=== PATIENT | male | born 1945 | race Caucasian/White ===

== ENCOUNTER 2017-12-13 13:15 | Inpatient (IN) | payer MEDICARE ==
[~2017-12-13] VITALS: Ht 175.3 cm; Wt 63.4 kg
[2017-12-13] MEDS ORDERED: SODIUM CHLORIDE FLUSH 10ML SYR IVF ONE (14:00)
[2017-12-13 14:21] LABS: BASOPHILS # (AUTO) 0.01 x10^3/uL (0-0.1); BASOPHILS % (AUTO) 0 % (0-1); EOSINOPHILS # (AUTO) 0.31 x10^3/uL (0-0.4); EOSINOPHILS % (AUTO) 2 % (1-7); LYMPHOCYTES # (AUTO) 1.32 x10^3/uL (1-3.4); LYMPHOCYTES % (AUTO) 8 % (22-44); MD NO; MEAN CORPUSCULAR HEMOGLOBIN 30.7 pg (27.5-34.5); MONOCYTES # (AUTO) 0.27 x10^3/uL (0.2-0.8); MONOCYTES % (AUTO) 2 % (2-9); NEUTROPHILS % (AUTO) 89 % (42-75); PLATELET COUNT 430 x10^3/uL (130-400); RED BLOOD COUNT 4.65 x10^6/uL (4.38-5.82); RED CELL DISTRIBUTION WIDTH 13.2 % (9.4-14.8)
[2017-12-13 14:29] LABS: INTERNATIONAL NORMALIZED RATIO 1.02 (0.93-1.1); PROTHROMBIN TIME 10.5 Seconds (9.6-11.5)
[2017-12-13 14:32] LABS: ALBUMIN 3.7 g/dL (3.4-5.0); ANION GAP 4 mmol/L (5-15); CHLORIDE 103 mmol/L (98-107)
[2017-12-13 14:35] LABS: ALANINE AMINOTRANSFERASE 19 U/L (12-78); ALKALINE PHOSPHATASE 87 U/L (45-117); CREATININE 1.16 mg/dL (0.7-1.3); TOTAL PROTEIN 7.5 g/dL (6.4-8.2)
[2017-12-13 14:41] LABS: MICROSCOPIC AUTO
[2017-12-13 14:42] LABS: CULTURE INDICATED? NO
[2017-12-13] MEDS ORDERED: ACETAMINOPHEN 325 MG TABLET ONE (14:54)
[2017-12-13] MEDS ORDERED: ACETAMINOPHEN 500 MG TABLET PO ONE (15:00)
[2017-12-13] MEDS ORDERED: SODIUM CHLORIDE 0.9% 1,000ML IVBOLUS ONE (15:00)
[2017-12-13] MEDS ORDERED: ACETAMINOPHEN 500 MG TABLET ONE (15:08)
[2017-12-13] MEDS ORDERED: AZITHROMYCIN 500 MG in SODIUM CHLORIDE 0.9% 250 ML IV ONE (16:00)
[2017-12-13] MEDS ORDERED: CEFTRIAXONE PMX 1GM/50ML 50 ML IV ONE (16:00)
[2017-12-13] MEDS ORDERED: CEFTRIAXONE PMX 1GM/50ML 50 ML ONE (16:01)
[2017-12-13] MEDS ORDERED: FLUT12AE INH (16:17)
[2017-12-13] MEDS ORDERED: ALBU8.5H8 INH (16:18)
[2017-12-13] MEDS ORDERED: ACETAMINOPHEN 325 MG TABLET PO PRN (17:00)
[2017-12-13] MEDS ORDERED: ONDANSETRON ODT 4 MG PO PRN (17:00)
[2017-12-13] MEDS ORDERED: BISACODYL 10 MG SUPP PR PRN (17:00)
[2017-12-13] MEDS ORDERED: GUAIFENESIN/DM 200-20MG, 10ML UDC PO PRN (17:00)
[2017-12-13] MEDS ORDERED: ONDANSETRON 2MG/ML, 2ML IVPush PRN (17:00)
[2017-12-13] MEDS ORDERED: DOCUSATE 100 MG CAPSULE PO PRN (17:00)
[2017-12-13] MEDS ORDERED: hydrALAzine 20 MG/ML, 1ML IVPush PRN (17:00)
[2017-12-13] MEDS ORDERED: ENALAPRILAT 1.25 MG/ML, 2ML IVPush PRN (17:00)
[2017-12-13 17:55] VITALS: BP 104/49
[2017-12-13] MEDS: ENOXAPARIN 40 MG/0.4 ML SQ SCH (18:14)
[2017-12-13] MEDS: SODIUM CHLORIDE 0.9% 1,000 ML IV SCH (18:22)
[2017-12-13] MEDS ORDERED: ALBUTEROL SULFATE 2.5 MG/3 ML NPPB PRN (18:30)
[2017-12-13 20:00] VITALS: BP 104/49
[2017-12-13 20:20] VITALS: BP 103/54
[2017-12-13] MEDS: TEMPLATE NON-FORMULARY MED. (Fluticasone Propionate (Flovent Hfa 110 Mcg/Inh) 1 PUFF) INH SCH (21:44)
[2017-12-14 02:51] VITALS: BP 108/54
[2017-12-14] MEDS: SODIUM CHLORIDE 0.9% 1,000 ML IV SCH ×2 (04:16→14:00)
[2017-12-14 04:59] LABS: BASOPHILS # (AUTO) 0.03 x10^3/uL (0-0.1); BASOPHILS % (AUTO) 0 % (0-1); EOSINOPHILS # (AUTO) 0.32 x10^3/uL (0-0.4); EOSINOPHILS % (AUTO) 3 % (1-7); LYMPHOCYTES # (AUTO) 2.27 x10^3/uL (1-3.4); LYMPHOCYTES % (AUTO) 22 % (22-44); MD NO; MEAN CORPUSCULAR HEMOGLOBIN 30.9 pg (27.5-34.5); MEAN CORPUSCULAR HGB CONC 33.4 g/dL (33.2-36.2); MEAN CORPUSCULAR VOLUME 92.7 fL (81-97); MONOCYTES # (AUTO) 0.57 x10^3/uL (0.2-0.8); MONOCYTES % (AUTO) 6 % (2-9); NEUTROPHILS # (AUTO) 6.94 x10^3/uL (1.8-6.8); NEUTROPHILS % (AUTO) 69 % (42-75); PLATELET COUNT 315 x10^3/uL (130-400); RED BLOOD COUNT 3.75 x10^6/uL (4.38-5.82); RED CELL DISTRIBUTION WIDTH 13.3 % (9.4-14.8)
[2017-12-14 05:02] LABS: CHLORIDE 108 mmol/L (98-107)
[2017-12-14 05:17] LABS: ANION GAP 3 mmol/L (5-15); CALCIUM 7.7 mg/dL (8.5-10.1); CREATININE 1.06 mg/dL (0.7-1.3); THYROID STIMULATING HORMONE 0.997 mIU/L (0.358-3.740)
[2017-12-14] MEDS: TEMPLATE NON-FORMULARY MED. (Fluticasone Propionate (Flovent Hfa 110 Mcg/Inh) 1 PUFF) INH SCH (08:08)
[2017-12-14] MEDS ORDERED: TEMPLATE NON-FORMULARY MED. (Albuterol Sulfate (Proair Hfa) 1 PUFF) INH SCH (09:00)
[2017-12-14] MEDS ORDERED: SENNA/DOCUSATE TABLET PO SCH (09:00)
[2017-12-14 09:23] VITALS: BP 101/52
[2017-12-14] MEDS ORDERED: CEFD300C37 PO (12:40)
[2017-12-14] MEDS ORDERED: AZIT500T5 PO (12:40)
[2017-12-14] MEDS ORDERED: AZITHROMYCIN 500 MG in SODIUM CHLORIDE 0.9% 250 ML IV SCH (14:00)
[2017-12-14] MEDS ORDERED: CEFTRIAXONE PMX 1GM/50ML 50 ML IV SCH (15:00)
[2017-12-14] MEDS: ENOXAPARIN 40 MG/0.4 ML SQ SCH (17:00)
== END 2017-12-14 17:35 | disposition home or self-care (01) | DRG 871 ==
LOC: ED 15:35 → EDIP 15:58 → 4WST 17:30
PROVIDERS: ADMIT Internal Medicine; ATTEND Internal Medicine
DX: A41.9 Sepsis, unspecified organism (principal); J18.0 Bronchopneumonia, unspecified organism; J96.01 Acute respiratory failure with hypoxia; J44.0 Chronic obstructive pulmonary disease with (acute) lower respiratory infection; R17 Unspecified jaundice; G43.909 Migraine, unspecified, not intractable, without status migrainosus; I49.3 Ventricular premature depolarization; Z80.0 Family history of malignant neoplasm of digestive organs; Z82.49 Family history of ischemic heart disease and other diseases of the circulatory system; Z85.038 Personal history of other malignant neoplasm of large intestine; Z90.49 Acquired absence of other specified parts of digestive tract
CPT/HCPCS: 36415; 71045; 71250; 80048; 80053; 81001; 83605; 84145; 84443; 85025; 85610; 85730; 87040; 93005; 93306; 96361; 96365; J0456; J0696; J7030; J7050